=== PATIENT | female | born 1980 | race Caucasian/White ===

== ENCOUNTER 2021-06-19 11:42 | Emergency (ER) | payer OTHER ==
[2021-06-19 12:12] LABS: BASOPHIL 0.6 % (0-2); EOSINOPHIL 0.8 % (0-5); HCT 42.9 % (37.0-47.0); HGB 14.5 g/dl (12.5-16.0); LYMPHOCYTE 37.3 % (15-48); MCH 31.1 pg (25.0-31.0); MCHC 33.8 g/dL (32.0-36.0); MCV 92.1 fL (78.0-100.0); MONOCYTE 8.9 % (0-12); MPV 10.1 fL (6.0-9.5); NEUTROPHIL 52.2 % (41-80); NRBC 0; PLT 250 K/uL (150-400); RBC 4.66 M/uL (4.20-5.40); RDW 12.8 % (11.5-14.0); WBC 6.2 K/uL (4.0-10.5)
[2021-06-19 12:20] LABS: INR 1.05 (0.9-1.2); PROTHROMBIN TIME 13.1 SECONDS (11.8-13.4); PTT 25.5 SECONDS (24.4-34.7)
[2021-06-19 12:35] LABS: ALBUMIN 4.4 g/dL (3.4-5.0); BILIRUBIN - TOTAL 0.6 mg/dL (0.2-1.0); BUN/CREAT RATIO (CALC) 12.9 RATIO; CREATININE 0.85 mg/dL (0.51-0.95); GLOBULIN (CALCULATION) 3.3 g/dL; POTASSIUM 3.5 mmol/L (3.5-5.1); TOTAL PROTEIN 7.7 g/dL (6.4-8.2)
[2021-06-19 12:41] LABS: CKMB <0.5 ng/mL (0.0-3.6)
== END 2021-06-19 15:00 | disposition other institution (70) ==
LOC: FER 11:42
PROVIDERS: Emergency Medicine
DX: R06.4 Hyperventilation (principal)
CPT/HCPCS: 36415; 70450; 71045; 80053; 80061; 82550; 82553; 83874; 84484; 85025; 85610; 85730; 93005; J2060